=== PATIENT | female | born 1955 | race Caucasian/White ===

== ENCOUNTER 2018-03-12 21:12 | Inpatient (IN) ==
--- NOTE | 2018-03-13 00:48 | ED ---
HPI General Chief complaint: Skin/Abscess/Foreign Body Stated complaint: Bite/Poss Infection Time Seen by Provider: 03/13/18 00:45 History of Present Illness HPI narrative: The patient is a 62 year old female who presents to the [facility] emergency department with a history of dog bite on 03/07 by a neighbor's dog. On Tuesday, she had stitches removed by her doctor. Today, it became more swollen red and painful. She is currently on clindamycin and doxy. This occurred in [place]. She is on vacation visiting [facility]. The physician she saw in follow up on Tuesday was a hand surgeon, and a few sutures from the dorsum of the hand were removed as there appeared to be an infection developing. She reports that at that time she was told to closely monitor the wounds. She reports that a line was placed around the area of redness and she was told that if the redness spread past there she would need to follow-up for additional evaluation. She denies having any fevers. She denies having any nausea or vomiting. On review of systems otherwise, she denies having any cough or congestion, neck pain, chest pain, shortness of breath, abdominal pain , diarrhea, urinary symptoms, or neurologic symptoms. Tetanus is reportedly up to date. Related Data Home Medications Medication Instructions Recorded Confirmed clindamycin HCl 150 mg PO TID 03/13/18 03/13/18 doxycycline monohydrate 100 mg PO Q12H 03/13/18 03/13/18 Allergies Allergy/AdvReac Type Severity Reaction Status Date / Time nitrofurantoin Allergy Rash Verified 03/12/18 21:28 [From Macrodantin] Penicillins Allergy Rash Verified 03/12/18 21:28 Review of Systems ROS Unobtainable All other systems reviewed negative except as stated in HPI Constitutional Denies fever(s) Eyes Denies change in vision ENT Denies headache(s) and Denies nasal congestion Cardiovascular Denies chest pain Respiratory Denies dyspnea Gastrointestinal Denies abdominal pain, Reports constipation (last bm 03/07), Denies diarrhea, Denies nausea and Denies vomiting Genitourinary Denies difficulty voiding Musculoskeletal Denies myalgias Integumentary/Breasts Reports erythema, Reports rash, Reports skin swelling and Reports wounds Neurologic Denies headache(s) Psychiatric Denies depression Endocrine Denies polyuria Hematologic/Lymphatic Denies easy bruising PMFSH Social History Social History Substance History: No History of Abuse Second Hand Smoke Exposure: No Smoking Status: Never smoker How Often Do You Have a Drink Containing Alcohol: 2 to 4 times a month Recent Travel in [facility] within the Last 8 Weeks: No Recent Out of Country Travel within the Last 8 Weeks: No Immunization History Tetanus Immunization: <5 Years Hx Influenza Vaccine This Season: No Exam HENMT Head: normocephalic and atraumatic Nose: no nasal discharge and no epistaxis Mouth: moist mucous membranes Eyes Sclera: normal sclerae Pupils: PERRL Neck Neck: trachea midline and no JVD Resp Effort & Inspection: no use of accessory muscles Auscultation: clear to auscultation bilaterally Cardio Rate: regular rate Rhythm: regular rhythm Heart Sounds: no murmurs GI Inspection: non-distended Palpation: soft, no hepatosplenomegaly and nontender Skin General: dry skin (warm) Wounds: wounds noted (Dog bites involving the right hand) dorsal size (at base of 2nd digit overlying distal mcp 2.5 cm draining wound, at base of first digit there is an L-shaped wound that is 2 cm on one side, 1.5 cm other sutures in place), drainage, sutures and with surrounding erythemaright palmar size ( Curvilinear wound with sutures in place that is 6 cm along the palm, radial side of the palm over the thenar eminence.) and with surrounding erythemaright thumb size (1.5 cm wound along the radial side of thumb) Neuro General: alert and awake Cranial Nerves: CN's II-XI intact bilaterally Speech: speech normal Motor: no movement abnormalities noted Sensory Exam: no sensory deficits noted Extrem General: normal to inspection, no clubbing, no cyanosis and no edema Psych Mood: congruent mood Affect: normal affect Judgment: judgment good Course Hospital Course: During the course of the patient's emergency department visit, the patient's history, examination, and differential diagnosis were reviewed with the patient. The patient was placed on a terminal gauger supervisor with oximetry and frequent blood pressure monitoring. The patient had IV access obtained and blood work sent for analysis. The patient was initially provided normal saline 1 L IV fluid bolus, broad- spectrum antibiotic coverage after blood cultures 2 were drawn, lactic acid was sent for analysis. Consultations Consultation #1: The patient's case including history, pertinent physical examination findings, and laboratory studies were discussed with Dr. martin. It was agreed that the patient would be admitted to the hospitalist service. Time: 03:51 Consultation #2: The patient's case including history, pertinent physical examination findings, and laboratory studies were discussed with Dr. Garnica, the hand surgeon. He will see the patient in consultation. Initial Documented Vital Signs Temperature 98.2 F 03/12/18 21:28 Pulse Rate 82 03/12/18 21:28 Respiratory Rate 18 03/12/18 21:28 Blood Pressure 131/70 03/12/18 21:28 Pulse Oximetry 100 03/12/18 21:28 Last Documented Vital Signs Temperature 98.7 F 03/13/18 12:00 Pulse Rate 61 03/13/18 12:00 Respiratory Rate 18 03/13/18 12:00 Blood Pressure 119/83 03/13/18 12:00 Pulse Oximetry 97 03/13/18 12:00 Medical Decision Making MDM Narrative Medical decision making narrative: A workup was started to evaluate for possible underlying sepsis associated with a cellulitis and infection from a dog bite. Diagnostic testing was remarkable for a white count of 8.4, differential with a monocytosis at 9.4, hemoglobin 11.7, chemistry was remarkable for a GFR of 85, BUN 20, CRP was elevated at 3.72. Lactic acid was within normal limits at 1.4. Wound culture was collected. An x-ray of the right hand was done, no fracture or radiopaque foreign bodies were noted. Soft tissue prominence was noted, however no evidence of osteomyelitis. The patient will be admitted to the hospital for continued evaluation and treatment of outpatient management of a dog bite with associated cellulitis. The patient's results were discussed with the patient, including the plan of care. I explained that further testing and/ or monitoring is indicated based on the patient's history, examination, and/ or laboratory findings. Therefore, I recommended admission for additional evaluation. The patient expressed understanding and was agreeable with this plan. The patient was admitted to the hospital in guarded condition and sent to a bed under the care of the [facility] service. Differential Diagnosis Differential Diagnosis: Sepsis related to cellulitis from a dog bite, versus abscess formation, versus tenosynovitis, versus tendon injury, versus nerve injury Lab Data Lab results reviewed: Yes I reviewed the patient's lab results. Result diagrams: 03/13/18 01:02 03/13/18 01:02 Lab Results 03/13/18 03/13/18 03/13/18 Range/Units 01:02 01:02 01:02 WBC 8.4 (4.0-11.0) th/mm3 RBC 3.75 L (4.00-5.30) mil/mm3 Hgb 11.7 (11.6-15.3) gm/dL Hct 35.6 (35.0-46.0) % MCV 94.9 (80.0-100.0) fL MCH 31.1 (27.0-34.0) pg MCHC 32.8 (32.0-36.0) % RDW 13.3 (11.6-17.2) % Plt Count 431 (150-450) th/mm3 MPV 7.8 (7.0-11.0) fL Neut % (Auto) 58.1 (16.0-70.0) % Lymph % (Auto) 30.2 (9.0-44.0) % Florence % (Auto) 9.4 H (0.0-8.0) % Eos % (Auto) 1.4 (0.0-4.0) % Baso % (Auto) 0.9 (0.0-2.0) % Neut # (Auto) 4.9 (1.8-7.7) th/mm3 Lymph # (Auto) 2.5 (1.0-4.8) th/mm3 Florence # (Auto) 0.8 (0.0-0.9) th/mm3 Eos # (Auto) 0.1 (0.0-0.4) th/mm3 Baso # (Auto) 0.1 (0.0-0.2) th/mm3 WBC Differential . Differential Comment Auto diff final Sodium 140 (136-145) meq/L Potassium 4.2 (3.5-5.1) meq/L Chloride 106 (98-107) meq/L Carbon Dioxide 25.6 (21.0-32.0) meq/L Anion Gap 8 (5-15) meq/L BUN 20 H (7-18) mg/dL Creatinine 0.70 (0.50-1.00) mg/dL Estimated GFR 85 L (>89) mL/min Random Glucose 104 (74-106) mg/dL Lactic Acid 1.4 (0.4-2.0) mmol/L Calcium 9.4 (8.5-10.1) mg/dL C-Reactive Protein 3.72 H (0.00-0.30) mg/dL Imaging Data Radiologist's impression: ITS Impressions Hand X-Ray 03/13/18 01:16 CONCLUSION: 1. No acute fracture or radiopaque foreign bodies. Discharge Plan Discharge Disposition Patient Disposition: 30 Still Patient Discharge Details Discharge Problem: Infected dog bite, Failure of outpatient treatment Physicians Team ED Provider: Carol Ann Marcial Primary Care Provider: UNKNOWN, Attending Provider: Anjali Danielle Other Providers: Mili Garnica ; Grupo Brennan Discharge Interventions Interventions: ED Discharge Assessment Last Done: 03/13/18 04:57 Vital Signs Last Done: 03/13/18 00:31 Status ED Status: Left Department Discharge Information Discharge Date/Time: 03/13/18 05:01
[2018-03-13] MEDS ORDERED: Sod Chloride 0.9% Inj 1,000 ML IV.SIG ONE (00:53)
[2018-03-13] MEDS ORDERED: Vancomycin Inj 1 GM/200 ML PIGGYBACK IV.SIG ONE (00:56)
[2018-03-13] MEDS ORDERED: Aztreonam Inj 2 GM in Sodium Chloride 0.9% Inj 100 ML IV.SIG ONE (00:57)
[2018-03-13 01:30] LABS: Baso # (Auto) 0.1 th/mm3 (0.0-0.2); Baso % (Auto) 0.9 % (0.0-2.0); Eos # (Auto) 0.1 th/mm3 (0.0-0.4); Eos % (Auto) 1.4 % (0.0-4.0); Hematocrit 35.6 % (35.0-46.0); Hemoglobin 11.7 gm/dL (11.6-15.3); Lymph # (Auto) 2.5 th/mm3 (1.0-4.8); Lymph % (Auto) 30.2 % (9.0-44.0); Mean Corpuscular HGB Conc 32.8 % (32.0-36.0); Mean Corpuscular Hemoglobin 31.1 pg (27.0-34.0); Mean Corpuscular Volume 94.9 fL (80.0-100.0); Mean Platelet Volume 7.8 fL (7.0-11.0); Mono # (Auto) 0.8 th/mm3 (0.0-0.9); Mono % (Auto) 9.4 % (0.0-8.0); Neut # (Auto) 4.9 th/mm3 (1.8-7.7); Neut % (Auto) 58.1 % (16.0-70.0); Platelet Count 431 th/mm3 (150-450); Red Blood Count 3.75 mil/mm3 (4.00-5.30); Red Cell Distribution Width 13.3 % (11.6-17.2); White Blood Count 8.4 th/mm3 (4.0-11.0)
[2018-03-13 01:46] LABS: C-Reactive Protein 3.72 mg/dL (0.00-0.30); Calcium 9.4 mg/dL (8.5-10.1); Carbon Dioxide 25.6 meq/L (21.0-32.0); Potassium 4.2 meq/L (3.5-5.1)
--- NOTE | 2018-03-13 01:55 | XR ---
EXAM DATE: 03/13/2018 1:39 AM EDT AGE/SEX: 62 years / Female INDICATIONS: Right hand pain, dog bite. CLINICAL DATA: This is the patient's initial encounter. Patient reports that signs and symptoms have been present for 4 - 6 days and indicates a pain score of 10/10. MEDICAL/SURGICAL HISTORY: None. None. COMPARISON: No prior exams available for comparison. FINDINGS: Soft tissue prominence overlying the dorsum of the hand. No radiopaque foreign bodies or acute bony f racture. Joint spaces are maintained. CONCLUSION: 1. No acute fracture or radiopaque foreign bodies. Electronically signed by: Kian Asencio MD 03/13/2018 1:53 AM EDT
[2018-03-13] MEDS ORDERED: Morphine Inj 4 MG/ML Vial IV.PUSH ONE (02:56)
[2018-03-13] MEDS ORDERED: Acetaminophen 325 MG Tablet PO PRN (03:52)
[2018-03-13] MEDS ORDERED: Bisacodyl 10 MG Supp RECTAL PRN (03:52)
[2018-03-13] MEDS ORDERED: Temazepam 15 MG Capsule PO PRN (03:52)
[2018-03-13] MEDS ORDERED: Morphine Inj 4 MG/ML Vial IV.PUSH PRN (04:06)
--- NOTE | 2018-03-13 04:08 | P.HP ---
History of Present Illness Service: [facility] Primary Care Physician: UNKNOWN Chief Complaint: Hand cellulitis History of Present Illness: 62-year-old female presents the emergency department for evaluation of a dog bite on her right hand. The patient reports she was bit by a great day and last Tuesday. The dog was fully vaccinated. She was seen in the emergency department where she underwent primary closure and oral antibiotic therapy. The patient states her hand was improving until she did her dressing change this evening. She noted that her hand was significantly more swollen and erythematous with increasing pain. She denies any fever/chills. There is mild purulent and serosanguineous drainage from the laceration on her hand. No chest pain or shortness of breath. No abdominal pain. No nausea/vomiting/ diarrhea. No lateralizing signs/symptoms. Inpatient Certification: I certify that the inpatient services were ordered in accordance with Medicare regulations governing the order. This includes certification that hospital inpatient services are reasonable and necessary and in the case of services not specified as inpatient-only under 42 CFR 419.22(n), that they are appropriately provided as inpatient services in accordance to with the 2-midnight benchmark under 43 CFR 412.3(e) Estimated Total Length of Stay (Days): 2 Plans for Post Hospital Care: Not yet determined Review of Systems All other systems reviewed negative except as stated in HPI [facility] - History History Provided By: Patient - Medical History Medical History: Medical History (Last Updated 03/13/18 @ 01:08 by Carol Ann Marcial MD) Kidney stones Osteoarthritis Medullary sponge kidney - Surgical History Surgical History: Surgical History (Last Updated 03/12/18 @ 21:32 by Karlee Copeland) H/O shoulder surgery H/O tubal ligation Hip joint replacement status History of repair of hiatal hernia Hx of appendectomy - Tobacco History Second Hand Smoke Exposure: No Tobacco Use In Past 30 Days: No Smoking Status: Never smoker - Alcohol History How Often Do You Have a Drink Containing Alcohol: Monthly or less - Substance Use History Substance History: No History of Abuse - Travel History Recent Travel in the [place] Within the Last 8 Weeks: No Recent Travel Out of the Country Within the Last 8 Weeks: No - Immunization History Tetanus Immunization: <5 Years Hx Influenza Vaccine This Season: No Medications and Allergies Active Medications: Active Medications Acetaminophen (Tylenol) 650 mg PO Q4H PRN PRN Reason: Temp > 100.4 Al Hydroxide/Mg Hydroxide (Milk Of Magnesia Liq) 30 ml PO Q12H PRN PRN Reason: Mild Constipation Bisacodyl (Dulcolax Supp) 10 mg RECTAL DAILY PRN PRN Reason: SEVERE CONSITIPATION Aztreonam 2 gm/ Sodium (Chloride) 100 mls @ 200 mls/hr IV.SIG Q8H CEDRIC Metronidazole/Sodium Chloride (Flagyl 500 Mg Inj) 100 mls @ 100 mls/hr IV.SIG Q8H CEDRIC Sodium Chloride (Ns Inj) 1,000 mls @ 70 mls/hr IV.CONT .[id number] CEDRIC Vancomycin HCl 1,000 mg/ (Sodium Chloride) 250 mls @ 250 mls/hr IV.SIG Q12H CEDRIC Lactulose (Lactulose Liq) 30 ml PO DAILY PRN PRN Reason: SEVERE CONSITIPATION Ondansetron HCl (Zofran Inj) 4 mg IV.PUSH Q6H PRN PRN Reason: NAUSEA OR VOMITING Senna/Docusate Sodium (Shayla-Colace) 1 tab PO BID CEDRIC Sennosides (Senokot) 17.2 mg PO Q12H PRN PRN Reason: Moderate Constipation Temazepam (Restoril) 15 mg PO HS PRN PRN Reason: INSOMNIA Allergies Allergy/AdvReac Type Severity Reaction Status Date / Time nitrofurantoin Allergy Rash Verified 03/12/18 21:28 [From Macrodantin] Penicillins Allergy Rash Verified 03/12/18 21:28 Home Medications Medication Instructions Recorded Confirmed Type clindamycin HCl 150 mg PO TID 03/13/18 03/13/18 History doxycycline monohydrate 100 mg PO Q12H 03/13/18 03/13/18 History Exam Vital signs: Vital Signs 03/12/18 21:28 03/13/18 00:31 Temperature 98.2 F Pulse Rate 82 Respiratory Rate 18 18 Blood Pressure 131/70 Pulse Oximetry 100 Intake & Output 03/12/18 03/12/18 03/13/18 06:59 18:59 06:59 Weight 49.895 kg Narrative: Gen.: No acute distress Head: Normocephalic. Atraumatic. EENT: Pupils equal round and reactive to light. Nose without drainage. Airway intact. Throat without injection. Cardiovascular: Regular rate and rhythm. No murmurs, rubs or gallops. Respiratory: Lungs clear to auscultation bilaterally. No wheezes or rhonchi. Abdomen: Soft, nontender, nondistended. No peritoneal signs. Musculoskeletal: No gross deformities. No edema. Skin: Swollen and erythematous right hand with open laceration draining serosanguineous and purulent material. Wound is sutured closed in majority of the locations. Neuro: Sensory and motor grossly intact. Cranial nerves II through XII grossly intact. Psych: Appropriate mood and affect Results - Labs CBC & Chem 7: 03/13/18 01:02 03/13/18 01:02 Labs: Laboratory Results - last 24 hr 03/13/18 03/13/18 03/13/18 01:02 01:02 01:02 WBC 8.4 RBC 3.75 L Hgb 11.7 Hct 35.6 MCV 94.9 MCH 31.1 MCHC 32.8 RDW 13.3 Plt Count 431 MPV 7.8 Neut % (Auto) 58.1 Lymph % (Auto) 30.2 Nelson % (Auto) 9.4 H Eos % (Auto) 1.4 Baso % (Auto) 0.9 Neut # (Auto) 4.9 Lymph # (Auto) 2.5 Nelson # (Auto) 0.8 Eos # (Auto) 0.1 Baso # (Auto) 0.1 WBC Differential . Differential Comment Auto diff final Sodium 140 Potassium 4.2 Chloride 106 Carbon Dioxide 25.6 Anion Gap 8 BUN 20 H Creatinine 0.70 Estimated GFR 85 L Random Glucose 104 Lactic Acid 1.4 Calcium 9.4 C-Reactive Protein 3.72 H - Imaging Impressions Hand X-Ray 03/13/18 01:16 CONCLUSION: 1. No acute fracture or radiopaque foreign bodies. Caprini VTE Risk Assessment Caprini VTE Risk Assessment: Moderate/High Risk (score >= 2) Caprini Risk Assessment Model: Point Value = 1 Point Value = 2 Point Value = 3 Point Value = 5 Age 41-60 Minor surgery BMI > 25 kg/m2 Swollen legs Varicose veins or History of unexplained or recurrent spontaneous Oral contraceptives or hormone replacement Sepsis (< 1 month) Serious lung disease, including pneumonia (< 1 month) Abnormal pulmonary function Acute myocardial infarction Congestive heart failure (< 1 month) History of inflammatory bowel disease Medical patient at bed rest Age 61-74 Arthroscopic surgery Major open surgery (> 45 min) Laparoscopic surgery (> 45 min) Malignancy Confined to bed (> 72 hours) Immobilizing plaster cast Central venous access Age >= 75 History of VTE Family history of VTE Factor V Leiden Prothrombin [id number] Lupus anticoagulant Anticardiolipin antibodies Elevated serum homocysteine Heparin-induced thrombocytopenia Other congenital or acquired thrombophilia Stroke (< 1 month) Elective arthroplasty Hip, pelvis, or leg fracture Acute spinal cord injury (< 1 month) Prophylaxis Regimen: Total Risk Factor Score Risk Level Prophylaxis Regimen 0-1 Low Early ambulation 2 Moderate Order ONE of the following: *Sequential Compression Device (SCD) *Heparin 5000 units SQ BID 3-4 Higher Order ONE of the following medications: *Heparin 5000 units SQ TID *Enoxaparin/Lovenox 40 mg SQ daily (WT < 150 kg, CrCl > 30 mL/min) *Enoxaparin/Lovenox 30 mg SQ daily (WT < 150 kg, CrCl > 10-29 mL/min) *Enoxaparin/Lovenox 30 mg SQ BID (WT < 150 kg, CrCl > 30 mL/min) AND/OR *Sequential Compression Device (SCD) 5 or more Highest Order ONE of the following medications: *Heparin 5000 units SQ TID (Preferred with Epidurals) *Enoxaparin/Lovenox 40 mg SQ daily (WT < 150 kg, CrCl > 30 mL/min) *Enoxaparin/Lovenox 30 mg SQ daily (WT < 150 kg, CrCl > 10-29 mL/min) *Enoxaparin/Lovenox 30 mg SQ BID (WT < 150 kg, CrCl > 30 mL/min) AND *Sequential Compression Device (SCD) Assessment and Plan - Plan Assessment/plan: 1. Dog bite to hand/cellulitis Patient reports she has had tetanus within the last 5 years but will confirm with her primary care physician in [place] tomorrow Hand surgery consulted, appreciate assistance Aztreonam, vancomycin and Flagyl as patient with penicillin allergy Wound, blood cultures pending Morphine for pain FEN N.p.o. NS at 70 cc/hour Holding pharmacologic anticoagulation for possible operative intervention
[2018-03-13] MEDS: Senna/Docusate Sodium 8.6/50 MG Tablet PO SCH ×2 (10:22→20:26)
[2018-03-13] MEDS: Sod Chloride 0.9% Inj 1,000 ML IV.CONT SCH (12:19)
[2018-03-13] MEDS: Aztreonam Inj 2 GM in Sodium Chloride 0.9% Inj 100 ML IV.SIG SCH ×2 (12:20→19:35)
--- NOTE | 2018-03-13 14:02 | MB ---
cc: Mili Garnica MD DATE: 03/13/2018 REQUESTING PHYSICIAN: The patient is being seen at the request of Dr. Sara Le REASON FOR CONSULTATION: Infected dog bite of right hand. HISTORY OF PRESENT ILLNESS: The patient is a 62-year-old female who was bitten by a [place] last Tuesday. This was a neighbor's dog. The record indicates that the dog is fully vaccinated. The patient was seen in the emergency room where the wounds were closed and the patient was treated. The patient was doing well until approximately 2 days ago when she noticed increased redness and swelling and then within several days developed an infection of the hand. She returned to the treating physicians where they removed the sutures and started her on wound care. She was also being treated with antibiotics. The patient noted there was improvement but then came down to [place] and she noted worsening redness and swelling of the hand. Since the patient has been admitted, she has noticed decreased redness and swelling of her right hand. Consultation is requested regarding evaluation and treatment of the pain and swelling. The patient does report that the only area that is slightly tender is the radial border of her thumb. PAST MEDICAL HISTORY AND REVIEW OF SYSTEMS: Otherwise negative, except as noted above. The patient has a history of kidney stones and osteoarthritis and a kidney issue. PAST SURGICAL HISTORY: She has a history of shoulder surgery, tubal ligation, joint replacement of her hip, a hiatal hernia and an appendectomy. SOCIAL HISTORY: The patient never smoked. She occasionally consumes alcohol. ALLERGIES: INCLUDE NITROFURANTOIN AND PENICILLINS. MEDICATIONS: Listed on the chart. PHYSICAL EXAMINATION: GENERAL: The patient is lying comfortably in bed. VITAL SIGNS: Her temperature is 98.7, pulse 61, respirations are 18, blood pressure is 119/83, pulse oximetry is 97 percent on room air. HEENT: Extraocular muscles are intact. Pupils are equal, round and reactive to light. Her mouth is clear. NECK: Supple without masses. LUNGS: Clear. HEART: Has a regular rate and rhythm. EXTREMITIES: Examination of her upper extremities reveals swelling of the right hand with areas of absorbable sutures. Some of the wounds are open. The patient's range of motion appears to be limited due to discomfort and swelling. There was an area along the radial side of the thumb approximately 1.5-2 cm, where there are 4 absorbable sutures and appears to be some stitch abscesses which are superficial. There are no other areas of any fluctuance. LABORATORY DATA: White count on admission was 8.4 without a shift. Her random glucose at 1 o'clock this morning was 104. Wound cultures are pending. IMPRESSION: The patient appears to have an infected dog bite. PLAN: 1. I will remove some of the remaining sutures in the thumb where there are suture abscesses. 2. We will start her on local wound care. 3. The patient does not appear to need any additional surgical intervention. MD YOLANDA Jack/SHERRY , 01:43 PM , 02:00 PM
[2018-03-13] MEDS: Vancomycin Inj 1,000 MG in Sodium Chlor 0.9% Inj 250 ML IV.SIG SCH (16:10)
--- NOTE | 2018-03-13 16:49 | MB ---
cc: Grupo Brennan MD DATE: 03/13/2018 REQUESTING PHYSICIAN: Dr. Glaser REASON: Extensive dog bite, right hand. Cellulitis. Please assist with antibiotics. HISTORY OF PRESENT ILLNESS: This is a 62-year-old white female who sustained a serious bite injury to the right hand on 03/07/2018. The patient sustained a laceration across the base of the thumb at the palmar aspect and also at the dorsal aspect and the proximal dorsum of the right hand at the base of fingers 2 and 3. She was evaluated by hand surgeon and she underwent debridement and wound closure and packing of the wound. She was also put on antibiotics in the form of clindamycin and doxycycline. The patient had markings placed on the hand to demarcate the area of erythema. She went to see her hand doctor and the packing was removed and it was felt that the wound was improving. She had dressing to the hand placed. However, yesterday she noted the hand was more swollen and red and the redness had extended beyond the marking at the thumb base and it was painful. She presented to the emergency department for evaluation. A culture was taken and is pending from the wound. Blood culture has no growth. The white blood cell count is normal and the patient's temperature is also normal. She denies fever, chills, nausea, vomiting or other symptoms besides pain in the right hand. The patient reports that the dog was a home pet and has had all vaccinations up to date. PAST MEDICAL HISTORY: Osteoarthritis. ALLERGIES: PENICILLIN and NITROFURANTOIN. MEDICATIONS: 1. Aztreonam. 2. Metronidazole. 3. Vancomycin. 4. Restoril. 5. Shayla-Colace. SOCIAL HISTORY: Occasional alcohol. No tobacco. No illicit drugs. FAMILY HISTORY: Noncontributory. REVIEW OF SYSTEMS: All systems reviewed and negative except for as stated in the History Of Present Illness. PHYSICAL EXAMINATION: GENERAL: This a well-developed female who is in no acute distress. HEAD, EARS, EYES, NOSE AND THROAT: Head normocephalic and atraumatic. Extraocular movements grossly intact. Pupils reactive to light. No icterus. Mucous membranes moist. No oropharyngeal lesions. NECK: Supple. No adenopathy. CARDIOVASCULAR: Normal S1 and S2, without murmurs, rubs or gallops. RESPIRATORY: Clear to auscultation bilateral. ABDOMEN: Bowel sounds present. Soft, no tenderness. RECTAL: Not performed. EXTREMITIES: The right hand has marked swelling at the dorsum. This is particularly swollen at the area around the base of the right thumb and the fingers are also swollen. There is erythema around the base of the right thumb. There are droplets of serous drainage from the incision areas at the suture line around the right thumb dorsal and palmar aspect. Pulses are intact. No visible necrosis. NEUROLOGIC: Cranial nerves 2-12 intact. Sensation over the hand and fingers are intact. PSYCHIATRIC: Normal affect. LABORATORY DATA: Creatinine 0.70, estimated GFR 85, sodium 140. WBC 8.4, platelet count 431, 58% neutrophils, 30% lymphocytes. IMAGING STUDIES: Hand x-ray showed no acute fracture or radiopaque foreign body. IMPRESSION: 1. Cellulitis of the right hand following dog bite injury. 2. Traumatic injury to the right hand following dog bite. 3. Failure to respond to oral antibiotics. 4. Post debridement and closure of right hand wound. 5. PENICILLIN ALLERGY. RECOMMENDATIONS: 1. Continue vancomycin. 2. Continue metronidazole. 3. Continue aztreonam. 4. Monitor the wound culture. 5. Monitor blood culture. 6. Antibiotic adjustment depending on culture results and response of the wound. 7. Elevate the right hand. Thank you for this consultation. The patient's progress will be monitored and further recommendations will be given upon followup. MD MOI Ferris/SHERRY , 04:15 PM , 04:47 PM
[2018-03-13] MEDS ORDERED: Povidone Iodine 10% Top Soln 118 ML Bottle TOPICAL SCH (20:00)
[2018-03-14] MEDS: Povidone Iodine 10% Top Soln 118 ML Bottle TOPICAL SCH ×2 (00:46→13:17)
[2018-03-14] MEDS: Sod Chloride 0.9% Inj 1,000 ML IV.CONT SCH ×2 (00:46→09:39)
[2018-03-14] MEDS: Vancomycin Inj 1,000 MG in Sodium Chlor 0.9% Inj 250 ML IV.SIG SCH ×2 (02:34→18:15)
[2018-03-14] MEDS: Aztreonam Inj 2 GM in Sodium Chloride 0.9% Inj 100 ML IV.SIG SCH ×3 (03:43→18:57)
[2018-03-14 08:44] LABS: Baso # (Auto) 0.1 th/mm3 (0.0-0.2); Baso % (Auto) 1.1 % (0.0-2.0); Eos # (Auto) 0.3 th/mm3 (0.0-0.4); Eos % (Auto) 3.9 % (0.0-4.0); Hematocrit 32.5 % (35.0-46.0); Hemoglobin 10.9 gm/dL (11.6-15.3); Lymph # (Auto) 1.4 th/mm3 (1.0-4.8); Lymph % (Auto) 21.1 % (9.0-44.0); Mean Corpuscular HGB Conc 33.5 % (32.0-36.0); Mean Corpuscular Hemoglobin 31.6 pg (27.0-34.0); Mean Corpuscular Volume 94.3 fL (80.0-100.0); Mean Platelet Volume 8.1 fL (7.0-11.0); Mono # (Auto) 0.7 th/mm3 (0.0-0.9); Mono % (Auto) 11.1 % (0.0-8.0); Neut # (Auto) 4.1 th/mm3 (1.8-7.7); Neut % (Auto) 62.8 % (16.0-70.0); Platelet Count 409 th/mm3 (150-450); Red Blood Count 3.45 mil/mm3 (4.00-5.30); Red Cell Distribution Width 13.4 % (11.6-17.2); White Blood Count 6.6 th/mm3 (4.0-11.0)
[2018-03-14 09:15] LABS: Anion Gap 10 meq/L (5-15); Blood Urea Nitrogen 13 mg/dL (7-18); Calcium 9.1 mg/dL (8.5-10.1); Chloride 109 meq/L (98-107); Glomerular Filtration Rate Greater Than 89 mL/min (>89); Glucose,Random 97 mg/dL (74-106); Potassium 3.9 meq/L (3.5-5.1); Sodium 142 meq/L (136-145)
[2018-03-14] MEDS: Senna/Docusate Sodium 8.6/50 MG Tablet PO SCH ×2 (09:42→21:11)
--- NOTE | 2018-03-14 10:17 | P.PNIM ---
Subjective Interval history: Patient reports the pain is feeling better. Less painful. She is able to move her fingers better. Erythema improved. Physical Exam Vital signs: Vital Signs 03/13/18 12:00 03/13/18 19:56 03/13/18 20:00 Temperature 98.7 F 98.2 F 98.6 F Pulse Rate 61 82 70 Respiratory Rate 18 16 17 Blood Pressure 119/83 136/73 158/80 H Pulse Oximetry 97 97 98 03/14/18 03:37 03/14/18 08:00 Temperature 98.3 F 98.1 F Pulse Rate 65 Respiratory Rate 17 20 Blood Pressure 134/71 145/70 H Pulse Oximetry 98 98 Intake & Output 03/13/18 03/14/18 03/14/18 18:59 06:59 18:59 Intake Total 950 / 950 650 / 650 Balance 950 / 950 650 / 650 Intake: IV 350 / 350 650 / 650 Azactam Inj 2 GM In NS Inj 100 100 / 100 200 / 200 ML @ 200 mls/hr IV.SIG Q8H [facility] Rx#:[id number] Vancomycin Inj 1,000 MG In NS 250 / 250 250 / 250 Inj 250 ML @ 250 mls/hr IV.SIG Q12H [facility] Rx#:[id number] Flagyl 500 MG Inj 100 ML @ 100 200 / 200 mls/hr IV.SIG Q8H [facility] Rx#: [id number] Oral 600 / 600 Narrative: GENERAL: This is a well-nourished, well-developed patient, in no apparent distress. CARDIOVASCULAR: Normal rate and regular rhythm without murmurs, gallops, or rubs. MUSCULOSKELETAL: Right hand swelling improved compared to exam yesterday. Erythema is regressing. Better range of motion. NEURO: Alert & Oriented x4 to person, place, time, situation. Moves all ext x4 PSYCH: Appropriate mood and affect. Results - Labs CBC & Chem 7: 03/14/18 07:00 03/14/18 07:00 Laboratory Results - last 24 hr 03/14/18 03/14/18 07:00 07:00 WBC 6.6 RBC 3.45 L Hgb 10.9 L Hct 32.5 L MCV 94.3 MCH 31.6 MCHC 33.5 RDW 13.4 Plt Count 409 MPV 8.1 Neut % (Auto) 62.8 Lymph % (Auto) 21.1 [place] % (Auto) 11.1 H Eos % (Auto) 3.9 Baso % (Auto) 1.1 Neut # (Auto) 4.1 Lymph # (Auto) 1.4 [place] # (Auto) 0.7 Eos # (Auto) 0.3 Baso # (Auto) 0.1 WBC Differential . Differential Comment Auto diff final Sodium 142 Potassium 3.9 Chloride 109 H Carbon Dioxide 23.0 Anion Gap 10 BUN 13 Creatinine 0.56 Estimated GFR Greater than 89 Random Glucose 97 Calcium 9.1 Microbiology 03/13/18 01:28 Wound - Hand Gram Stain - Final Assessment and Plan - Plan 59-year-old female with: Dog bite to hand/cellulitis, failed outpatient treatment. Previously had sutures and antibiotics outpatient. Hand surgery following. Sutures removed. Continue conservative management with antibiotics. Wound care per hand surgery. Continue aztreonam, vancomycin and Flagyl as patient with penicillin allergy Wound, blood cultures pending Pain medication as needed.
--- NOTE | 2018-03-14 11:54 | P.PNID ---
Infectious Disease Brief Note ID NOTE: Patient feels okay. Afebrile. Less pain in the right hand. Wound culture pending. PAST MEDICAL HISTORY: Osteoarthritis. ALLERGIES: PENICILLIN and NITROFURANTOIN. MEDICATIONS: Acetaminophen (Tylenol) 650 mg PO Q4H PRN PRN Reason: Temp > 100.4 Al Hydroxide/Mg Hydroxide (Milk Of Magnesia Liq) 30 ml PO Q12H PRN PRN Reason: Mild Constipation Bisacodyl (Dulcolax Supp) 10 mg RECTAL DAILY PRN PRN Reason: SEVERE CONSITIPATION Aztreonam 2 gm/ Sodium (Chloride) 100 mls @ 200 mls/hr IV.SIG Q8H [facility] Last Infusion: 03/14/18 04:15 Dose: Infused Metronidazole/Sodium Chloride (Flagyl 500 Mg Inj) 100 mls @ 100 mls/hr IV.SIG Q8H [facility] Last Admin: 03/14/18 09:38 Dose: 100 mls/hr Sodium Chloride (Ns Inj) 1,000 mls @ 70 mls/hr IV.CONT .[id number] [facility] Last Admin: 03/14/18 09:39 Dose: Not Given Vancomycin HCl 1,000 mg/ (Sodium Chloride) 250 mls @ 250 mls/hr IV.SIG Q12H [facility] Last Infusion: 03/14/18 03:37 Dose: Infused Lactulose (Lactulose Liq) 30 ml PO DAILY PRN PRN Reason: SEVERE CONSITIPATION Morphine Sulfate (Morphine Inj) 4 mg IV.PUSH Q4H PRN PRN Reason: pain 6-10 Ondansetron HCl (Zofran Odt) 4 mg PO Q6H PRN PRN Reason: NAUSEA OR VOMITING Povidone Iodine (Betadine 10% Oint) 1 applicatio TOPICAL DAILY [facility] Last Admin: 03/13/18 19:50 Dose: 1 applicatio Povidone Iodine (Betadine 10% Top Soln) 1 applicatio TOPICAL DAILY [facility] Last Admin: 03/14/18 00:46 Dose: Not Given Senna/Docusate Sodium (Shayla-Colace) 1 tab PO BID [facility] Last Admin: 03/14/18 09:42 Dose: Not Given Sennosides (Senokot) 17.2 mg PO Q12H PRN PRN Reason: Moderate Constipation Temazepam (Restoril) 15 mg PO HS PRN PRN Reason: INSOMNIA OBJECTIVE: Vital Signs - 24 hr 03/13/18 12:00 03/13/18 19:56 03/13/18 20:00 Temperature 98.7 F 98.2 F 98.6 F Pulse Rate 61 82 70 Respiratory Rate 18 16 17 Blood Pressure 119/83 136/73 158/80 H Pulse Oximetry 97 97 98 03/14/18 03:37 03/14/18 08:00 Temperature 98.3 F 98.1 F Pulse Rate 65 Respiratory Rate 17 20 Blood Pressure 134/71 145/70 H Pulse Oximetry 98 98 Laboratory Results - last 24 hr 03/14/18 03/14/18 07:00 07:00 WBC 6.6 RBC 3.45 L Hgb 10.9 L Hct 32.5 L MCV 94.3 MCH 31.6 MCHC 33.5 RDW 13.4 Plt Count 409 MPV 8.1 Neut % (Auto) 62.8 Lymph % (Auto) 21.1 [place] % (Auto) 11.1 H Eos % (Auto) 3.9 Baso % (Auto) 1.1 Neut # (Auto) 4.1 Lymph # (Auto) 1.4 [place] # (Auto) 0.7 Eos # (Auto) 0.3 Baso # (Auto) 0.1 WBC Differential . Differential Comment Auto diff final Sodium 142 Potassium 3.9 Chloride 109 H Carbon Dioxide 23.0 Anion Gap 10 BUN 13 Creatinine 0.56 Estimated GFR Greater than 89 Random Glucose 97 Calcium 9.1 Microbiology 03/13/18 01:02 Aerobic Blood Culture - Preliminary Blood - Peripheral No growth in 1 day Anaerobic Blood Culture - Preliminary No growth in 1 day 03/13/18 01:07 Aerobic Blood Culture - Preliminary Blood - Peripheral No growth in 1 day Anaerobic Blood Culture - Preliminary No growth in 1 day 03/13/18 01:28 Gram Stain - Final Wound - Hand IMAGING: No acute fracture or radiopaque foreign bodies. PHYSICAL EXAMINATION: GENERAL: No acute distress. HEAD, EARS, EYES, NOSE AND THROAT: Head normocephalic and atraumatic. Extraocular movements grossly intact. Pupils reactive to light. No icterus. Mucous membranes moist. No oropharyngeal lesions. NECK: Supple. No adenopathy. CARDIOVASCULAR: Normal S1 and S2, without murmurs, rubs or gallops. RESPIRATORY: Clear to auscultation bilateral. ABDOMEN: Bowel sounds present. Soft, no tenderness. EXTREMITIES: The right hand swelling has decreased. There is still moderate erythema around the base of the right thumb. Pulses are intact. No visible necrosis. NEUROLOGIC: Cranial nerves 2-12 intact. Sensation over the hand and fingers are intact. PSYCHIATRIC: Normal affect. IMPRESSION: 1. Cellulitis of the right hand following dog bite injury. 2. Traumatic injury to the right hand following dog bite. 3. Failure to respond to oral antibiotics. 4. PENICILLIN ALLERGY. RECOMMENDATIONS: 1. Continue vancomycin. 2. Change metronidazole to PO. 3. Continue aztreonam. 4. Monitor the wound culture. Antibiotic choice will depending on culture result.
--- NOTE | 2018-03-14 12:07 | P.PNID ---
Subjective Remarks: AAA Allergies/Adverse Reactions: Allergies nitrofurantoin [From Macrodantin] Allergy (Verified 03/12/18 21:28) Rash Penicillins Allergy (Verified 03/12/18 21:28) Rash Objective Vital Signs 03/13/18 19:56 03/13/18 20:00 03/14/18 03:37 Temperature 98.2 F 98.6 F 98.3 F Pulse Rate 82 70 65 Respiratory Rate 16 17 17 Blood Pressure 136/73 158/80 H 134/71 Pulse Oximetry 97 98 98 03/14/18 08:00 Temperature 98.1 F Pulse Rate Respiratory Rate 20 Blood Pressure 145/70 H Pulse Oximetry 98 Intake & Output 03/13/18 03/14/18 03/14/18 18:59 06:59 18:59 Intake Total 950 / 950 650 / 650 Balance 950 / 950 650 / 650 Intake: IV 350 / 350 650 / 650 Azactam Inj 2 GM In NS Inj 100 100 / 100 200 / 200 ML @ 200 mls/hr IV.SIG Q8H [facility] Rx#:[id number] Vancomycin Inj 1,000 MG In NS 250 / 250 250 / 250 Inj 250 ML @ 250 mls/hr IV.SIG Q12H [facility] Rx#:[id number] Flagyl 500 MG Inj 100 ML @ 100 200 / 200 mls/hr IV.SIG Q8H [facility] Rx#: [id number] Oral 600 / 600 03/13/18 01:02 Blood - Peripheral Aerobic Blood Culture - Preliminary No growth in 1 day 03/13/18 01:02 Blood - Peripheral Anaerobic Blood Culture - Preliminary No growth in 1 day 03/13/18 01:07 Blood - Peripheral Aerobic Blood Culture - Preliminary No growth in 1 day 03/13/18 01:07 Blood - Peripheral Anaerobic Blood Culture - Preliminary No growth in 1 day 03/13/18 01:28 Wound - Hand Gram Stain - Final 03/13/18 01:28 Wound - Hand Wound Culture - Pending Lab - Hematology Results 03/13/18 03/14/18 01:02 07:00 WBC 8.4 6.6 RBC 3.75 L 3.45 L Hgb 11.7 10.9 L Hct 35.6 32.5 L MCV 94.9 94.3 MCH 31.1 31.6 MCHC 32.8 33.5 RDW 13.3 13.4 Plt Count 431 409 MPV 7.8 8.1 Neut % (Auto) 58.1 62.8 Lymph % (Auto) 30.2 21.1 [place] % (Auto) 9.4 H 11.1 H Eos % (Auto) 1.4 3.9 Baso % (Auto) 0.9 1.1 Neut # (Auto) 4.9 4.1 Lymph # (Auto) 2.5 1.4 [place] # (Auto) 0.8 0.7 Eos # (Auto) 0.1 0.3 Baso # (Auto) 0.1 0.1 WBC Differential . . Differential Comment Auto diff final Auto diff final Lab - Chemistry Results 03/13/18 03/13/18 03/14/18 01:02 01:02 07:00 Sodium 140 142 Potassium 4.2 3.9 Chloride 106 109 H Carbon Dioxide 25.6 23.0 Anion Gap 8 10 BUN 20 H 13 Creatinine 0.70 0.56 Estimated GFR 85 L Greater than 89 Random Glucose 104 97 Lactic Acid 1.4 Calcium 9.4 9.1 C-Reactive Protein 3.72 H Imaging: ITS Impressions Hand X-Ray 03/13/18 01:16 CONCLUSION: 1. No acute fracture or radiopaque foreign bodies.
--- NOTE | 2018-03-14 16:24 | P.PNPLA ---
Subjective Remarks: The patient reports that the hand feels a lot better and that the areas which bothered her yesterday no longer do. Objective Vital Signs: Vital Signs - 24 hr 03/13/18 19:56 03/13/18 20:00 03/14/18 03:37 Temperature 98.2 F 98.6 F 98.3 F Pulse Rate 82 70 65 Respiratory Rate 16 17 17 Blood Pressure 136/73 158/80 H 134/71 Pulse Oximetry 97 98 98 03/14/18 08:00 03/14/18 12:00 03/14/18 15:50 Temperature 98.1 F 98.1 F 98.7 F Pulse Rate 71 68 Respiratory Rate 20 20 Blood Pressure 145/70 H 151/70 H 167/77 H Pulse Oximetry 98 97 98 Intake & Output 03/12/18 03/13/18 03/14/18 03/15/18 06:59 06:59 06:59 06:59 Intake Total 1600 / 1600 980 / 980 Balance 1600 / 1600 980 / 980 Weight 49.895 kg Laboratory Results: Laboratory Results - last 24 hr 03/14/18 03/14/18 07:00 07:00 WBC 6.6 RBC 3.45 L Hgb 10.9 L Hct 32.5 L MCV 94.3 MCH 31.6 MCHC 33.5 RDW 13.4 Plt Count 409 MPV 8.1 Neut % (Auto) 62.8 Lymph % (Auto) 21.1 [place] % (Auto) 11.1 H Eos % (Auto) 3.9 Baso % (Auto) 1.1 Neut # (Auto) 4.1 Lymph # (Auto) 1.4 [place] # (Auto) 0.7 Eos # (Auto) 0.3 Baso # (Auto) 0.1 WBC Differential . Differential Comment Auto diff final Sodium 142 Potassium 3.9 Chloride 109 H Carbon Dioxide 23.0 Anion Gap 10 BUN 13 Creatinine 0.56 Estimated GFR Greater than 89 Random Glucose 97 Calcium 9.1 Microbiology 03/13/18 01:28 Gram Stain - Final Wound - Hand Wound Culture - Preliminary No growth in 24 hours 03/13/18 01:02 Aerobic Blood Culture - Preliminary Blood - Peripheral No growth in 1 day Anaerobic Blood Culture - Preliminary No growth in 1 day 03/13/18 01:07 Aerobic Blood Culture - Preliminary Blood - Peripheral No growth in 1 day Anaerobic Blood Culture - Preliminary No growth in 1 day Result Diagrams: 03/14/18 07:00 03/14/18 07:00 Exam Findings: The dressing is intact but the proximal redness and swelling are greatly diminished. Her range of motion is much improved. Assessment and Plan - Discharge Planning Impression: The patient is doing very well. Plan: The patient is cleared by me as she will not require surgical intervention.
[2018-03-14] MEDS ORDERED: Acyclovir 200 MG Capsule PO PRN (18:51)
[2018-03-15] MEDS: Aztreonam Inj 2 GM in Sodium Chloride 0.9% Inj 100 ML IV.SIG SCH ×2 (02:10→11:02)
[2018-03-15] MEDS ORDERED: Vancomycin Inj 1,000 MG in Sodium Chlor 0.9% Inj 250 ML IV.SIG SCH (06:00)
[2018-03-15] MEDS: Povidone Iodine 10% Top Soln 118 ML Bottle TOPICAL SCH ×2 (06:13→11:03)
[2018-03-15] MEDS: Senna/Docusate Sodium 8.6/50 MG Tablet PO SCH (09:39)
--- NOTE | 2018-03-15 11:20 | P.PNID ---
Subjective Remarks: Patient feels better. Very little pain in the right hand. Erythema has decreased markedly. Afebrile. Antibiotics: Vancomycin Flagyl Aztreonam Allergies/Adverse Reactions: Allergies nitrofurantoin [From Macrodantin] Allergy (Verified 03/12/18 21:28) Rash Penicillins Allergy (Verified 03/12/18 21:28) Rash Objective Vital Signs 03/14/18 12:00 03/14/18 15:50 03/14/18 20:00 Temperature 98.1 F 98.7 F 98.7 F Pulse Rate 71 68 70 Respiratory Rate 20 17 Blood Pressure 151/70 H 167/77 H 141/74 H Pulse Oximetry 97 98 98 03/14/18 23:23 03/15/18 03:36 03/15/18 08:00 Temperature 98.8 F 98.8 F 98.3 F Pulse Rate 62 60 60 Respiratory Rate 16 17 16 Blood Pressure 136/69 142/65 H 147/70 H Pulse Oximetry 95 95 95 Intake & Output 03/14/18 03/15/18 03/15/18 18:59 06:59 18:59 Intake Total 1180 / 1180 400 / 400 350 / 350 Balance 1180 / 1180 400 / 400 350 / 350 Intake: IV 200 / 200 400 / 400 350 / 350 Azactam Inj 2 GM In NS Inj 100 100 / 100 200 / 200 ML @ 200 mls/hr IV.SIG Q8H [facility] Rx#:[id number] Vancomycin Inj 1,000 MG In NS 250 / 250 Inj 250 ML @ 250 mls/hr IV.SIG Q12H [facility] Rx#:[id number] Flagyl 500 MG Inj 100 ML @ 100 100 / 100 200 / 200 100 / 100 mls/hr IV.SIG Q8H [facility] Rx#: [id number] Oral 980 / 980 Other: # Voids 3 Date of Last Bowel Movement 03/14/18 03/13/18 01:02 Blood - Peripheral Aerobic Blood Culture - Preliminary No growth in 2 days 03/13/18 01:02 Blood - Peripheral Anaerobic Blood Culture - Preliminary No growth in 2 days 03/13/18 01:07 Blood - Peripheral Aerobic Blood Culture - Preliminary No growth in 2 days 03/13/18 01:07 Blood - Peripheral Anaerobic Blood Culture - Preliminary No growth in 2 days 03/13/18 01:28 Wound - Hand Gram Stain - Final 03/13/18 01:28 Wound - Hand Wound Culture - Preliminary No growth in 48 hours Lab - Hematology Results 03/14/18 07:00 WBC 6.6 RBC 3.45 L Hgb 10.9 L Hct 32.5 L MCV 94.3 MCH 31.6 MCHC 33.5 RDW 13.4 Plt Count 409 MPV 8.1 Neut % (Auto) 62.8 Lymph % (Auto) 21.1 [place] % (Auto) 11.1 H Eos % (Auto) 3.9 Baso % (Auto) 1.1 Neut # (Auto) 4.1 Lymph # (Auto) 1.4 [place] # (Auto) 0.7 Eos # (Auto) 0.3 Baso # (Auto) 0.1 WBC Differential . Differential Comment Auto diff final Lab - Chemistry Results 03/14/18 07:00 Sodium 142 Potassium 3.9 Chloride 109 H Carbon Dioxide 23.0 Anion Gap 10 BUN 13 Creatinine 0.56 Estimated GFR Greater than 89 Random Glucose 97 Calcium 9.1 Imaging: ITS Impressions Hand X-Ray 03/13/18 01:16 CONCLUSION: 1. No acute fracture or radiopaque foreign bodies. Physical Exam: PHYSICAL EXAMINATION: GENERAL: No acute distress. HEAD, EARS, EYES, NOSE AND THROAT: Head normocephalic and atraumatic. Extraocular movements grossly intact. Pupils reactive to light. No icterus. Mucous membranes moist. No oropharyngeal lesions. NECK: Supple. No adenopathy. CARDIOVASCULAR: Normal S1 and S2, without murmurs, rubs or gallops. RESPIRATORY: Clear to auscultation bilateral. ABDOMEN: Bowel sounds present. Soft, no tenderness. EXTREMITIES: The right hand swelling has decreased significantly. There is still erythema around the base of the right thumb. Pulses are intact. No visible necrosis. NEUROLOGIC: Cranial nerves 2-12 intact. Sensation over the hand and fingers are intact. PSYCHIATRIC: Normal affect. Assessment and Plan - Plan IMPRESSION: 1. Cellulitis of the right hand following dog bite injury. Improving. Culture has no growth in 48 hours. 2. Traumatic injury to the right hand following dog bite. 3. Failure to respond to oral antibiotics. doxycycline and clindamycin pre admission. 4. PENICILLIN ALLERGY. RECOMMENDATIONS: 1. Stop vancomycin. 2. Stop metronidazole to PO. 3. Stop aztreonam. Okay to discharge patient on PO Clindamycin( She has supply 450mg PO tid) and Levaquin 750mg PO daily x 10 days. She is due to travel home to [place] on 03/18/18 and I notified her to see her primary doctor as soon as she gets back home.
--- NOTE | 2018-03-15 11:56 | P.DS ---
Date of admission: 03/13/18 03:19 Primary care physician: UNKNOWN Brief History from admission: HPI from the admitting physician: 62-year-old female presents the emergency department for evaluation of a dog bite on her right hand. The patient reports she was bit by a great day and last Tuesday. The dog was fully vaccinated. She was seen in the emergency department where she underwent primary closure and oral antibiotic therapy. The patient states her hand was improving until she did her dressing change this evening. She noted that her hand was significantly more swollen and erythematous with increasing pain. She denies any fever/chills. There is mild purulent and serosanguineous drainage from the laceration on her hand. No chest pain or shortness of breath. No abdominal pain. No nausea/vomiting/ diarrhea. No lateralizing signs/symptoms. Update on 03/15/18: Patient reports she is feeling great. Swelling mostly resolved. No fevers or chills. Eager to go home. DS: Diagnosis - Discharge Diagnosis (1) Infected dog bite Status: Acute (2) Failure of outpatient treatment Status: Acute DS: Medications - Discharge Medications Prescriptions: acyclovir 400 mg PO TID 7 Days #42 cap levofloxacin [Levaquin] 750 mg PO DAILY #10 tab DS: Summary Hospital Course: 59-year-old female admitted with infected dog bite. Failed outpatient therapy. Previously had sutures and antibiotics outpatient. Hand surgery consulted on the patient. Sutures removed and advised conservative management with antibiotics. The patient was followed by infectious disease. She was treated with broad-spectrum antibiotics including aztreonam, vancomycin and Flagyl. In swelling and erythema significantly improved. Much better range of motion. The patient is discharged on clindamycin and Levaquin to complete the course of treatment. - Time Spent with Patient Total time spent providing and/or coordinating discharge services: - Quality: VTE Deep Vein Thrombosis/Pulmonary Embolism Present on Admission: No Exam Vital signs: Vital Signs 03/14/18 12:00 03/14/18 15:50 03/14/18 20:00 Temperature 98.1 F 98.7 F 98.7 F Pulse Rate 71 68 70 Respiratory Rate 20 17 Blood Pressure 151/70 H 167/77 H 141/74 H Pulse Oximetry 97 98 98 03/14/18 23:23 03/15/18 03:36 03/15/18 08:00 Temperature 98.8 F 98.8 F 98.3 F Pulse Rate 62 60 60 Respiratory Rate 16 17 16 Blood Pressure 136/69 142/65 H 147/70 H Pulse Oximetry 95 95 95 Intake & Output 03/14/18 03/15/18 03/15/18 18:59 06:59 18:59 Intake Total 1180 / 1180 400 / 400 350 / 350 Balance 1180 / 1180 400 / 400 350 / 350 Intake: IV 200 / 200 400 / 400 350 / 350 Azactam Inj 2 GM In NS Inj 100 100 / 100 200 / 200 ML @ 200 mls/hr IV.SIG Q8H [facility] Rx#:[id number] Vancomycin Inj 1,000 MG In NS 250 / 250 Inj 250 ML @ 250 mls/hr IV.SIG Q12H [facility] Rx#:[id number] Flagyl 500 MG Inj 100 ML @ 100 100 / 100 200 / 200 100 / 100 mls/hr IV.SIG Q8H [facility] Rx#: [id number] Oral 980 / 980 Other: # Voids 3 Date of Last Bowel Movement 03/14/18 Narrative: GENERAL: This is a well-nourished, well-developed patient, in no apparent distress. CARDIOVASCULAR: Normal rate and regular rhythm without murmurs, gallops, or rubs. MUSCULOSKELETAL: Right hand swelling improved compared to exam yesterday. Erythema is regressing. Better range of motion. NEURO: Alert & Oriented x4 to person, place, time, situation. Moves all ext x4 PSYCH: Appropriate mood and affect. Results Procedures completed during hospitalization: None Labs on day of discharge: Preliminary micro results at discharge 03/13/18 01:02 Aerobic Blood Culture - Preliminary Blood - Peripheral No growth in 2 days Anaerobic Blood Culture - Preliminary No growth in 2 days 03/13/18 01:07 Aerobic Blood Culture - Preliminary Blood - Peripheral No growth in 2 days Anaerobic Blood Culture - Preliminary No growth in 2 days 03/13/18 01:28 Wound Culture - Preliminary Wound - Hand No growth in 48 hours - Impressions ITS Impressions Hand X-Ray 03/13/18 01:16 CONCLUSION: 1. No acute fracture or radiopaque foreign bodies. Discharge Plan - Discharge Disposition Patient Disposition: Discharge Home - Discharge Condition Condition: Good - Discharge Order Discharge Orders: Discharge Order (Routine); Ordered 03/15/18 Ordered By: Anjali Danielle - Physicians Team Primary Care Provider: UNKNOWN, Attending Provider: Anjali Danielle Other Providers: Mili Garnica MD ; Grupo Brennan MD
== END 2018-03-15 15:31 | disposition home or self-care (01) ==
LOC: NEPE 21:12 → NEDA 03-13 03:19 → NEPFCDU 03-13 05:08
PROVIDERS: ADMIT Family Medicine; ATTEND Family Medicine